=== PATIENT | female | born 1970 | race Caucasian/White ===

== ENCOUNTER 2022-10-31 12:31 | Outpatient (CLI) | payer BC | END 2022-10-31 12:32 | disposition home or self-care (01) | LOC: SCSRAD 12:31 | PROVIDERS: ATTEND Chiropractor | DX: S33.5XXA Sprain of ligaments of lumbar spine, initial encounter (principal); M46.45 Discitis, unspecified, thoracolumbar region | CPT/HCPCS: 72100 ==